=== PATIENT | male | born 1950 | race Caucasian/White ===

== ENCOUNTER 2022-02-26 18:00 | Emergency (ER) | payer OTHER ==
[2022-02-26] MEDS ORDERED: IBUPROFEN 400 MG TAB ONE (18:47)
[2022-02-26] MEDS ORDERED: NA CHLORIDE 0.9% 1,000 ML ONE (18:47)
[2022-02-26] MEDS ORDERED: Levofloxacin 750mg IV 750 MG/150 ML BAG IV ONE (18:47)
[2022-02-26 18:58] LABS: Absolute Lymphocytes (CBC) 0.5 K/uL (0.7-4.9); Hematocrit 44.7 % (39.6-49.0); Lymphocytes % 8.9 % (15.3-44.8); MPV 7.7 fL (7.6-11.3); RBC Red Blood Cell Count 5.09 M/uL (4.33-5.43)
[2022-02-26 19:02] LABS: Protime INR 1.09
[2022-02-26 19:13] LABS: Albumin 3.7 g/dL (3.4-5.0); Bilirubin Total 0.3 mg/dL (0.2-1.0); Potassium 4.1 mmol/L (3.5-5.1); Protein, Total 7.7 g/dL (6.4-8.2)
[2022-02-26] MEDS ORDERED: VANCOMYCIN 1.5 GM in NA CHLORIDE 0.9% 500 ML IVPB ONE (20:00)
--- NOTE | 2022-02-26 21:44 | ER ---
Nurse's Notes [facility] Name: Rustam Ling Age: 71 yrs Sex: Male : 1950 Arrival Date: 02/26/2022 Time: 18:04 Bed 6 Private MD: Diagnosis: Coronavirus infection, unspecified;Acute upper respiratory infection, unspecified;Fever, unspecified Presentation: 02/26 18:14 Chief complaint: Patient states: i have had a sinus infection and drainage for 4 or 5 tw2 weeks. my local drTanisha has given me antibiotics but they havent worked. i got fever 2 or 3 hours ago. i took tylenol at 5pm. i just cant get rid of it and i just cough. Coronavirus screen: chills, fever, runny nose, Client presents with at least one sign or symptom that may indicate coronavirus-19. Standard/surgical mask placed on the client. Provider contacted for isolation considerations. Ebola Screen: Patient denies travel to an Ebola-affected area in the 21 days before illness onset. Initial Sepsis Screen: Does the patient meet any 2 criteria? Temp <36.0*C (96.8*F)) or > 38.3*C (100.9*F). HR > 90 bpm. Yes Does the patient have a suspected source of infection? Yes: Productive cough/pneumonia. Risk Assessment: Do you want to hurt yourself or someone else? Patient reports no desire to harm self or others. Onset of symptoms was February 26, 2022. 18:14 Method Of Arrival: Ambulatory tw2 18:14 Acuity: CAM 2 tw2 Triage Assessment: 18:18 Headache History: The patient has had previous headaches and this one is less severe tw2 than previous episodes. General: Appears in no apparent distress. Behavior is calm, cooperative, appropriate for age. Pain: Pain currently is 0 out of 10 on a pain scale. Also complains of chills, fever. Pain: Pain began 2-3 days ago. Neuro: Level of Consciousness is awake, alert, obeys commands. Historical: - Allergies: 18:16 No Known Allergies; tw2 - Home Meds: 18:16 Synthroid Oral [Active]; Lisinopril Oral [Active]; "cholesterol medicine" [Active]; tw2 - PMHx: 18:16 Hypertensive disorder; Hypothyroidism; Hypercholesterolemia; tw2 - PSHx: 18:16 b/l knee replacement; left ankle sx; tw2 - Immunization history:: Client reports receiving the 2nd dose of the Covid vaccine. - Social history:: Smoking status: Patient denies any tobacco usage or history of. Screenin:53 Abuse screen: Denies threats or abuse. Denies injuries from another. Nutritional jg9 screening: No deficits noted. Tuberculosis screening: No symptoms or risk factors identified. Fall Risk None identified. Assessment: 18:53 Reassessment: No changes from previously documented assessment. Patient and/or family jg9 updated on plan of care and expected duration. Pain level reassessed. Patient is alert, oriented x 3, equal unlabored respirations, skin warm/dry/pink. 20:45 General: Appears in no apparent distress. comfortable, Behavior is calm, cooperative. lg3 Pain: Denies pain. Neuro: No deficits noted. Chua Agitation-Sedation Scale (RASS): 0 - Alert and Calm Level of Consciousness is awake, alert, obeys commands, Oriented to person, place, time, situation. Cardiovascular: No deficits noted. Denies chest pain, shortness of breath, Capillary refill < 3 seconds Clubbing of nail beds is absent JVD is absent Patient's skin is warm and dry. Respiratory: No deficits noted. Airway is patent Trachea midline Respiratory effort is even, unlabored, Respiratory pattern is regular, symmetrical. GI: No deficits noted. No signs and/or symptoms were reported involving the gastrointestinal system. Abdomen is round non-distended. : No deficits noted. No signs and/or symptoms were reported regarding the genitourinary system. EENT: No deficits noted. Reports nasal congestion. Derm: No deficits noted. No signs and/or symptoms reported regarding the dermatologic system. Skin is intact, is healthy with good turgor, Skin is dry, Skin temperature is warm. Musculoskeletal: No deficits noted. No signs and/or symptoms reported regarding the musculoskeletal system. Circulation, motion, and sensation intact. Range of motion: intact in all extremities. 22:25 Reassessment: bebtelovimab administered. monitoring pt for an hour before d/c. educated 5 pt on signs and symptoms to be aware of and to ring call light to inform nurse if having any symptoms. 23:28 Reassessment: Patient appears in no apparent distress at this time. No changes from lg3 previously documented assessment. Patient and/or family updated on plan of care and expected duration. Pain level reassessed. Patient is alert, oriented x 3, equal unlabored respirations, skin warm/dry/pink. Patient states feeling better. Patient states symptoms have improved. Vital Signs: 18:14 BP 148 / 92; Pulse 131; Resp 19; Temp 101.3(TE); Pulse Ox 98% on R/A; Weight 113.4 kg; tw2 Height 6 ft. 0 in. (182.88 cm); 18:45 BP 141 / 86; Pulse 114; Resp 20 S; Pulse Ox 96% on R/A; jg9 20:45 BP 112 / 64; Pulse 103; Resp 19 S; Pulse Ox 96% on R/A; lg3 21:55 BP 112 / 65; Pulse 97; Resp 18; Temp 98.8(O); Pulse Ox 97% on R/A; sm5 23:27 Temp 98.4(O); lg3 23:27 BP 122 / 74; Pulse 89; Resp 17; Pulse Ox 98% on R/A; lg3 18:14 Body Mass Index 33.91 (113.40 kg, 182.88 cm) tw2 ED Course: 18:04 Patient arrived in ED. ja2 18:16 Maxwell Lovett MD is Attending Physician. [facility] 18:16 Triage completed. tw2 18:18 Arm band placed on. tw2 18:40 Inserted saline lock: 20 gauge in right antecubital area, using aseptic technique. jg9 Blood collected. 18:52 Stacie Zayas, RASHAUN is Primary Nurse. jg9 18:53 Patient has correct armband on for positive identification. Bed in low position. Call jg9 light in reach. Side rails up X 1. 19:33 Attending Physician role handed off by Maxwell Lovett MD emil 19:33 Nimesh Francisco MD is Attending Physician. emil 19:42 Primary Nurse role handed off by Stacie Zayas, RASHAUN 2 19:55 Antonietta Ontiveros, RASHAUN is Primary Nurse. sm5 22:30 Chest Pa And Lat (2 Views) XRAY In Process Unspecified. EDMS 23:28 No provider procedures requiring assistance completed. IV discontinued, intact, lg3 bleeding controlled, No redness/swelling at site. Pressure dressing applied. Administered Medications: 18:34 CANCELLED (Physician Discretion): Acetaminophen 1000 mg PO once jd3 18:34 CANCELLED (Physician Discretion): Rocephin - (cefTRIAXone) 1 grams IVPB once over 30 jd3 mins; (mix in 50 mL NS) 18:35 CANCELLED (Duplicate Order): Motrin (ibuprofen) 800 mg PO once jd3 18:35 CANCELLED (Physician Discretion): LevaQUIN (levofloxacin) 500 mg 100 ml IVPB once over jd3 60 mins 18:45 Drug: NS 0.9% (30 ml/kg) 30 ml/kg Route: IV; Rate: bolus; Site: right forearm; jg9 23:30 Follow up: Response: No adverse reaction; IV Status: Completed infusion lg3 18:45 Drug: Motrin (ibuprofen) 800 mg Route: PO; jd3 18:55 Follow up: Response: No adverse reaction jg9 18:56 Drug: LevaQUIN (levofloxacin) 750 mg Route: IVPB; Site: right antecubital; jg9 23:29 Follow up: Response: No adverse reaction; IV Status: Completed infusion lg3 20:43 Drug: vancoMYCIN 1.5 grams Route: IVPB; Rate: calculated rate; Site: right antecubital; lg3 23:29 Follow up: Response: No adverse reaction; IV Status: Completed infusion; IV Intake: lg3 500ml 21:55 Drug: Zithromax (azithromycin) 500 mg Route: PO; sm5 23:19 Follow up: Response: No adverse reaction lg3 21:55 Drug: Pepcid (famotidine) 40 mg Route: PO; sm5 23:19 Follow up: Response: No adverse reaction lg3 Medication: 18:53 VIS not applicable for this client. jg9 Intake: 23:29 IV: 500ml; Total: 500ml. lg3 Outcome: 21:43 Discharge ordered by . emil 23:28 Discharged to home ambulatory, with significant other. lg3 23:28 Condition: stable 23:28 Discharge instructions given to patient, significant other, Instructed on discharge instructions, follow up and referral plans. medication usage, Demonstrated understanding of instructions, follow-up care, medications, Prescriptions given X 3. 23:45 Patient left the ED. mw2 Signatures: Dispatcher Hoopla Nimesh Sheridan MD MD cha Rittger, Kevin, MD MD kdr Wise, Tara, RN RN tw2 Justino Mcrae RN RN jd3 Alfreda Hernandez 2 Iris Davis RN RN lg3 Kecia Dawson Sarah, RN RN sm5 Stacie Zayas RN RN jg9
--- NOTE | 2022-02-26 21:44 | EDPHYS ---
Physician Documentation [facility] Name: Rustam Ling Age: 71 yrs Sex: Male : 1950 Arrival Date: 02/26/2022 Time: 18:04 Bed 6 Private MD: ED Physician Nimesh Francisco HPI: 02/26 18:38 This 71 yrs old Male presents to ER via Ambulatory with complaints of Fever, Headache, kdr Chills. 18:39 Patient presents to the ED complaining of fever and chills. He states that over the kdr last 4 to 6 weeks he has had 6 shots 1 of which was steroid and the other 5 for a Rocephin shot from his physician in [place]. He continues to have fever chills and malaise. They are here today for a and Todd. He states that he has significant upper respiratory congestion and sinus infections and that in the mornings he has a lot of coughing and green sputum and phlegm. Patient appears moderately ill however he is otherwise stable. We will forego the 30mL/kg fluid bolus for sepsis given the stability of his blood pressure and pulse at this time.. Onset: The symptoms/episode began/occurred gradually, 6 week(s) ago. Severity of symptoms: At their worst the symptoms were mild moderate just prior to arrival, in the emergency department the symptoms are unchanged. The patient has experienced similar episodes in the past, chronically. The patient has been recently seen by a physician: Patient saw his primary care physician on Thursday in [place] and had a shot at that time as well as a COVID test. COVID test have been negative to date. Historical: - Allergies: 18:16 No Known Allergies; tw2 - Home Meds: 18:16 Synthroid Oral [Active]; Lisinopril Oral [Active]; "cholesterol medicine" [Active]; tw2 - PMHx: 18:16 Hypertensive disorder; Hypothyroidism; Hypercholesterolemia; tw2 - PSHx: 18:16 b/l knee replacement; left ankle sx; tw2 - Immunization history:: Client reports receiving the 2nd dose of the Covid vaccine. - Social history:: Smoking status: Patient denies any tobacco usage or history of. ROS: 18:42 Constitutional: Negative for weight loss. kdr 18:42 Eyes: Negative for injury, pain, redness, and discharge. 18:42 Neck: Negative for injury, pain, and swelling, Abdomen/GI: Negative for abdominal pain, nausea, vomiting, diarrhea, and constipation, Back: Negative for injury and pain, : Negative for injury, bleeding, discharge, and swelling, MS/Extremity: Negative for injury and deformity, Skin: Negative for injury, rash, and discoloration, Neuro: Negative for headache, weakness, numbness, tingling, and seizure activity. Psych: Negative for depression, anxiety, suicide ideation, homicidal ideation, and hallucinations, Allergy/Immunology: Negative for hives, rash, and allergies, Endocrine: Negative for neck swelling, polydipsia, polyuria, polyphagia, and marked weight changes, Hematologic/Lymphatic: Negative for swollen nodes, abnormal bleeding, and unusual bruising. 18:42 Constitutional: Positive for body aches, chills, fever, malaise, Negative for weight loss. 18:42 ENT: Positive for sinus congestion, sinus pain. 18:42 Cardiovascular: Positive for palpitations, Negative for chest pain, edema, orthopnea. 18:42 Respiratory: Positive for cough, with green sputum, dyspnea on exertion, shortness of breath, at rest. wheezing. Exam: 18:42 Constitutional: This is a well developed, well nourished patient who is awake, alert, kdr and in no acute distress. Head/Face: Normocephalic, atraumatic. Eyes: Pupils equal round and reactive to light, extra-ocular motions intact. Lids and lashes normal. Conjunctiva and sclera are non-icteric and not injected. Cornea within normal limits. Periorbital areas with no swelling, redness, or edema. Neck: Trachea midline, no thyromegaly or masses palpated, and no cervical lymphadenopathy. Supple, full range of motion without nuchal rigidity, or vertebral point tenderness. No Meningismus. Chest/axilla: Normal chest wall appearance and motion. Nontender with no deformity. No lesions are appreciated. Abdomen/GI: Soft, non-tender, with normal bowel sounds. No distension or tympany. No guarding or rebound. No evidence of tenderness throughout. Back: No spinal tenderness. No costovertebral tenderness. Full range of motion. Skin: Warm, dry with normal turgor. Normal color with no rashes, no lesions, and no evidence of cellulitis. MS/ Extremity: Pulses equal, no cyanosis. Neurovascular intact. Full, normal range of motion. Neuro: Awake and alert, GCS 15, oriented to person, place, time, and situation. Cranial nerves II-XII grossly intact. Motor strength 5/5 in all extremities. Sensory grossly intact. Cerebellar exam normal. Normal gait. Psych: Awake, alert, with orientation to person, place and time. Behavior, mood, and affect are within normal limits. 18:42 Cardiovascular: Rate: tachycardic, Rhythm: regular, Pulses: no pulse deficits are appreciated, Edema: is not appreciated. 18:42 Respiratory: the patient does not display signs of respiratory distress, Respirations: no acute changes, Breath sounds: no acute changes. 18:44 ECG was reviewed by the Attending Physician. kdr Vital Signs: 18:14 BP 148 / 92; Pulse 131; Resp 19; Temp 101.3(TE); Pulse Ox 98% on R/A; Weight 113.4 kg; tw2 Height 6 ft. 0 in. (182.88 cm); 18:45 BP 141 / 86; Pulse 114; Resp 20 S; Pulse Ox 96% on R/A; jg9 20:45 BP 112 / 64; Pulse 103; Resp 19 S; Pulse Ox 96% on R/A; lg3 21:55 BP 112 / 65; Pulse 97; Resp 18; Temp 98.8(O); Pulse Ox 97% on R/A; sm5 23:27 Temp 98.4(O); lg3 23:27 BP 122 / 74; Pulse 89; Resp 17; Pulse Ox 98% on R/A; lg3 18:14 Body Mass Index 33.91 (113.40 kg, 182.88 cm) tw2 MDM: 18:42 Data reviewed: vital signs, nurses notes, lab test result(s), radiologic studies. kdr Counseling: I had a detailed discussion with the patient and/or guardian regarding: the historical points, exam findings, and any diagnostic results supporting the discharge/admit diagnosis, lab results, radiology results. 19:33 Patient medically screened. emil 02/26 18:21 Order name: Blood Culture Adult (2) kdr 02/26 18:21 Order name: CBC with Diff; Complete Time: 21:24 kdr 02/26 18:21 Order name: CMP; Complete Time: 21:24 kdr 02/26 18:21 Order name: Lactate; Complete Time: 21:24 [facility] 02/26 18:21 Order name: Protime (+inr); Complete Time: 21:24 [facility] 02/26 18:21 Order name: Ptt, Activated; Complete Time: 21:24 [facility] 02/26 18:23 Order name: COVID-19 SARS RT PCR (Document "Date of Onset" if Symptomatic); Complete bd Time: 21:02/26 21:36 Order name: Chest Pa And Lat (2 Views) [facility] 02/26 18:21 Order name: Cardiac monitoring; Complete Time: 18:34 [facility] 02/26 18:21 Order name: EKG - Nurse/Tech; Complete Time: 18:34 [facility] 02/26 18:21 Order name: IV Saline Lock - Large Bore; Complete Time: 18:56 [facility] 02/26 18:21 Order name: Labs collected and sent; Complete Time: 18:56 [facility] 02/26 18:21 Order name: O2 Per Protocol; Complete Time: 18:38 [facility] 02/26 18:21 Order name: O2 Sat Monitoring; Complete Time: 18:38 [facility] 02/26 21:39 Order name: Misc. Order: BEBTELOVIMAB; Complete Time: 22:26 [facility] 02/26 21:49 Order name: Urine Dipstick-Ancillary (obtain specimen) [facility] EC:44 Rate is 121 beats/min. Rhythm is regular, Sinus tachycardia with No ectopy. QRS [place] is kdr Normal. [place] interval is normal. QRS interval is normal. Clinical impression: Sinus tachycardia. Administered Medications: 18:34 CANCELLED (Physician Discretion): Acetaminophen 1000 mg PO once jd3 18:34 CANCELLED (Physician Discretion): Rocephin - (cefTRIAXone) 1 grams IVPB once over 30 jd3 mins; (mix in 50 mL NS) 18:35 CANCELLED (Duplicate Order): Motrin (ibuprofen) 800 mg PO once jd3 18:35 CANCELLED (Physician Discretion): LevaQUIN (levofloxacin) 500 mg 100 ml IVPB once over jd3 60 mins 18:45 Drug: NS 0.9% (30 ml/kg) 30 ml/kg Route: IV; Rate: bolus; Site: right forearm; jg9 23:30 Follow up: Response: No adverse reaction; IV Status: Completed infusion lg3 18:45 Drug: Motrin (ibuprofen) 800 mg Route: PO; jd3 18:55 Follow up: Response: No adverse reaction jg9 18:56 Drug: LevaQUIN (levofloxacin) 750 mg Route: IVPB; Site: right antecubital; jg9 23:29 Follow up: Response: No adverse reaction; IV Status: Completed infusion lg3 20:43 Drug: vancoMYCIN 1.5 grams Route: IVPB; Rate: calculated rate; Site: right antecubital; lg3 23:29 Follow up: Response: No adverse reaction; IV Status: Completed infusion; IV Intake: lg3 500ml 21:55 Drug: Zithromax (azithromycin) 500 mg Route: PO; sm5 23:19 Follow up: Response: No adverse reaction lg3 21:55 Drug: Pepcid (famotidine) 40 mg Route: PO; sm5 23:19 Follow up: Response: No adverse reaction lg3 Disposition Summary: 02/26/22 21:43 [facility]charge [facility] Symptoms: have improved emil Condition: [facility] Diagnosis - Coronavirus infection, unspecified emil - Acute upper respiratory infection, unspecified emil - Fever, unspecified emil Followup: emil - With: Private Physician - When: 2 - 3 days - Reason: Recheck today's complaints, Continuance of care, Re-evaluation by your physician Discharge Instructions: - Discharge Summary Sheet emil - Upper Respiratory Infection, Adult emil - Cool Mist Vaporizer emil - Viral Respiratory Infection, [id number] emil - Aspirin and Your Heart emil - Cough, Adult emil - COVID-19 [facility] - COVID-19 Frequently Asked Questions [facility] - 10 Things You Can Do to Manage Your COVID-19 Symptoms at Home - [facility] emil - COVID-19: Quarantine vs. Isolation - [facility] Forms: - Medication Reconciliation Form emil - Thank You Letter emil - Antibiotic Education emil - Prescription Opioid Use [facility] Prescriptions: - budesonide 180 mcg/actuation Inhalation aerosol powdr breath activated - inhale 2 puff by INHALATION route 2 times per day; 1 Pump; Refills: 0, Product emil Selection Permitted - Pepcid 20 mg Oral Tablet - take 1 tablet by ORAL route every 12 hours for 30 days; 60 tablet; Refills: 0, [facility] Product Selection Permitted - Zithromax 500 mg Oral Tablet - take 1 tablet by ORAL route once daily for 5 days; 5 tablet; Refills: 0, emil Product Selection Permitted Signatures: Dispatcher [employer] EDNimesh Stoddard MD MD cha Rittger, Kevin, MD MD kdr Sherrell Mercer RN RN tw2 Justino Mcrae RN RN jd3 Iris Davis, RN RN lg3 Antonietta Ontiveros, RN RN sm5 Stacie Zayas RN RN jg9 Corrections: (The following items were deleted from the chart) 18:34 18:21 Acetaminophen 1000 mg PO once ordered. kdr jd3 18:34 18:21 Rocephin - (cefTRIAXone) 1 grams IVPB once over 30 mins; (mix in 50 mL NS) jd3 ordered. kdr 18:35 18:34 Motrin (ibuprofen) 800 mg PO once ordered. jd3 jd3 18:35 18:34 LevaQUIN (levofloxacin) 500 mg 100 ml IVPB once over 60 mins ordered. jd3 jd3 18:56 18:21 Accucheck ordered. kdr jg9
[2022-02-26] MEDS ORDERED: AZITHROMYCIN 250 MG TAB ONE (21:56)
[2022-02-26] MEDS ORDERED: BEBTELOVIMAB 175 MG/2 ML VIAL IV ONE (21:57)
[2022-02-26] MEDS ORDERED: FAMOTIDINE 20 MG TAB ONE (21:57)
[2022-02-26 23:57] VITALS: BP 122/74; TEMP 98.4; O2SAT 98
--- NOTE | 2022-02-27 11:33 | RAD REPORT ---
EXAM DESCRIPTION: XR Chest, 2 Views CLINICAL HISTORY: Cough TECHNIQUE: Frontal and lateral views of the chest. COMPARISON: No relevant prior studies available. FINDINGS: Lungs: Unremarkable. No consolidation. Pleural space: Unremarkable. No pneumothorax. Heart: Unremarkable. No cardiomegaly. Mediastinum: Unremarkable. Bones/joints: Unremarkable. IMPRESSION: No acute disease. Electronically signed by: Janice Stevens MD 02/27/2022 12:36 AM CDT Due to temporary technical issues with the PACS/Fluency reporting system, reports are being signed by the in house radiologists without review as a courtesy to insure prompt reporting. The interpreting radiologist is fully responsible for the content of the report.
--- NOTE | 2022-02-27 15:29 | EKG ---
Test Date: 2022-02-26 Test Time: 18:28:34 Maintenance Associate: WILL MEASUREMENT RESULTS: Intervals: Rate: 121 TX: 162 QRSD: 98 QT: 312 QTc: 443 [place]: P: 34 TX: 162 QRS: -71 T: 28 INTERPRETIVE STATEMENTS: Sinus tachycardia Left anterior fascicular block Cannot rule out Inferior infarct (masked by fascicular block?), age undetermined Abnormal ECG No previous ECG available for comparison Electronically Signed On 02-27-22 15:27:37 CDT by Andrew Dan
== END 2022-02-26 23:45 | disposition home or self-care (01) ==
LOC: ER 18:00
DX: U07.1 COVID-19 (principal); J06.9 Acute upper respiratory infection, unspecified; E03.9 Hypothyroidism, unspecified; E78.00 Pure hypercholesterolemia, unspecified; I10 Essential (primary) hypertension
CPT/HCPCS: 93005; 87040 ×2; 85025; 36415; 85610; 83605; 85730; 80053; 71046; 99284; U0003; J3370; J7040; J7030